=== PATIENT | female | born 1960 | race African-American/Black ===

== ENCOUNTER 2017-01-28 22:41 | Emergency (ER) | payer MEDICAID ==
[~2017-01-28] VITALS: Ht 162.6 cm; Wt 66.0 kg
[~2017-01-28 22:41] MED LIST: ALBUTEROL; MORP30TA54 PO; NAPROXEN
[2017-01-29 01:21] VITALS: BP 156/95
== END 2017-01-29 02:34 | disposition home or self-care (01) ==
LOC: ER 22:41
DX: R09.89 Other specified symptoms and signs involving the circulatory and respiratory systems (principal); R47.02 Dysphasia
CPT/HCPCS: 70490; 71010; 99284

== ENCOUNTER 2017-02-25 23:19 | Emergency (ER) | payer MEDICAID ==
[~2017-02-25] VITALS: Ht 165.1 cm; Wt 64.0 kg
[~2017-02-25 23:19] MED LIST changes: +IOHEXOL-300 100 ML BOTTLE ONE; +SODIUM CHLORIDE 0.9% 10ML VIAL ONE
[2017-02-26] MEDS ORDERED: SODIUM CHLORIDE 0.9% 1,000 ML IV ONE (02:30)
[2017-02-26 03:00] LABS: BASOPHILS % 0.3 % (0.0-2.0); EOSINOPHILS % 0.8 % (0.0-5.0); HEMATOCRIT. 37.5 % (36.0-48.0); HEMOGLOBIN. 12.3 g/dL (12.0-16.0); LYMPHOCYTES % 8.1 % (20.0-50.0); MEAN CORPUSCULAR HEMOGLOBIN 26.8 pg (28.0-32.0); MEAN CORPUSCULAR HGB CONC 32.6 g/dL (31.0-37.0); MEAN PLATELET VOLUME 7.5 fl (7.4-10.4); MONOCYTES % 8.4 % (2.0-8.0); NEUTROPHILS % 82.4 % (40.0-76.0); PLATELET 361 x1000/uL (130-400); RED BLOOD CELL COUNT 4.58 mill/uL (4.2-5.4); RED CELL DISTRIBUTION WIDTH 15.5 % (11.6-14.6); WHITE BLOOD COUNT 14.7 x1000/uL (4.5-11.0)
[2017-02-26 03:17] LABS: ANION GAP 12; CALCIUM 8.6 mg/dL (8.5-10.1); CARBON DIOXIDE 30 mEq/L (21-32); CHLORIDE 98 mEq/L (98-107); UREA NITROGEN BLOOD 13 mg/dL (7-21); eGFR > 60 mL/min (>60)
[2017-02-26 03:18] LABS: ALANINE AMINOTRANSFERASE 31 IU/L (13-61); ALBUMIN 2.5 g/dL (3.4-5.0); INDEX HEMOLYSI 1 (1-3); INDEX ICTERIC 1 (1-4); INDEX LIPEMIC 1 (1-3)
[2017-02-26] MEDS ORDERED: LIDOCAINE HCL/EPINEPHRINE 1%-EPI 1:100,000 50 ML VIAL INFIL ONE (05:15)
[2017-02-26] MEDS ORDERED: SODIUM CHLORIDE 0.9% IRRIG SOLUTION 1000ML IR ONE (05:15)
[2017-02-26] MEDS ORDERED: ONDANSETRON HCL 4MG/2ML VIAL IV ONE (05:15)
[2017-02-26] MEDS ORDERED: MORPHINE SULFATE 4 MG/ML CPJ (NOT FOR IM USE) IV ONE (05:15)
[2017-02-26] MEDS ORDERED: LIDOCAINE HCL 1%/EPI 1:200,000 30 ML VIAL MC NR (05:30)
[2017-02-26 06:20] VITALS: BP 116/82
[2017-02-26] MEDS ORDERED: CEFAZOLIN 1000MG PREMIX 50 ML IV ONE (06:30)
[2017-02-26] MEDS ORDERED: VANCOMYCIN 1 G PREMIX 200 ML IV SCH (06:30)
[2017-02-26] MEDS ORDERED: DIPHENHYDRAMINE 50MG/ML VIAL IV ONE (06:30)
[2017-02-27] MEDS ORDERED: AMOX500T2 PO (09:21)
== END 2017-02-26 09:32 | disposition home or self-care (01) ==
LOC: ER 23:20
DX: L02.415 Cutaneous abscess of right lower limb (principal); K57.30 Diverticulosis of large intestine without perforation or abscess without bleeding; J44.9 Chronic obstructive pulmonary disease, unspecified; B19.20 Unspecified viral hepatitis C without hepatic coma; K59.00 Constipation, unspecified; K76.89 Other specified diseases of liver; M19.90 Unspecified osteoarthritis, unspecified site; K43.9 Ventral hernia without obstruction or gangrene; K40.90 Unilateral inguinal hernia, without obstruction or gangrene, not specified as recurrent; J98.4 Other disorders of lung; F17.210 Nicotine dependence, cigarettes, uncomplicated; Z88.0 Allergy status to penicillin; Z88.5 Allergy status to narcotic agent; Z98.890 Other specified postprocedural states
CPT/HCPCS: 10060; 36415; 74177; 80053; 83605; 85025; 85651; 86140; 96361; 96365; 96375; 99285; A4216; A4217; J0690; J1200; J2270; J2405; J3370; J7030; Q9967; Z7610; J3490

== ENCOUNTER 2017-02-27 09:11 | Emergency (ER) | payer MEDICAID ==
[~2017-02-27] VITALS: Ht 162.6 cm; Wt 63.5 kg
[~2017-02-27 09:11] MED LIST changes: -IOHEXOL-300 100 ML BOTTLE ONE; -SODIUM CHLORIDE 0.9% 10ML VIAL ONE
[2017-02-27 09:21] VITALS: BP 100/70
[2017-02-27] MEDS ORDERED: AMOX500T2 PO (09:21)
== END 2017-02-27 10:44 | disposition home or self-care (01) ==
LOC: ER 09:51
DX: Z48.01 Encounter for change or removal of surgical wound dressing (principal); R53.1 Weakness; J44.9 Chronic obstructive pulmonary disease, unspecified; M19.90 Unspecified osteoarthritis, unspecified site; F17.210 Nicotine dependence, cigarettes, uncomplicated; Z88.0 Allergy status to penicillin; Z88.5 Allergy status to narcotic agent; Z79.899 Other long term (current) drug therapy; Z86.19 Personal history of other infectious and parasitic diseases
CPT/HCPCS: 99281; X7700; Z7610

== ENCOUNTER 2019-05-11 22:09 | Emergency (ER) | payer MEDICAID ==
[~2019-05-11] VITALS: Ht 152.4 cm; Wt 64.0 kg
[~2019-05-11 22:09] MED LIST changes: +AMOX500T2 PO; -MORP30TA54 PO; -NAPROXEN
[2019-05-11 22:53] VITALS: BP 158/77
[2019-05-12] MEDS ORDERED: LIDOCAINE HCL/PF 1% 10 MG/ML 30ML VIAL INFIL ONE (00:15)
[2019-05-12] MEDS ORDERED: LIDOCAINE HCL 2%/EPINEPHRINE/PF 10 ML VIAL INFIL ONE (00:15)
[2019-05-12] MEDS ORDERED: LIDOCAINE HCL 1% 20ML VIAL (Pyxis) INJ INFIL NR (00:30)
[2019-05-12] MEDS ORDERED: CEPHALEXIN 250MG CAPSULE PO ONE (01:00)
[2019-05-12] MEDS ORDERED: KETOROLAC 60MG/2ML VIAL IM ONE (01:00)
== END 2019-05-12 01:35 | disposition home or self-care (01) ==
LOC: ER 22:09
DX: L02.415 Cutaneous abscess of right lower limb (principal); F17.210 Nicotine dependence, cigarettes, uncomplicated; Z71.6 Tobacco abuse counseling
CPT/HCPCS: 10060; 99283; 99406; A4217; J1885; J3490; Z7610

== ENCOUNTER 2019-09-01 18:45 | Emergency (ER) | payer MEDICAID ==
[~2019-09-01] VITALS: Ht 157.5 cm; Wt 78.0 kg
[2019-09-01] MEDS ORDERED: KETOROLAC 30MG/ML VIAL IV STA (22:42)
[2019-09-01] MEDS ORDERED: SODIUM CHLORIDE 0.9% 1,000 ML IV ONE (22:42)
[2019-09-01 23:06] LABS: BASOPHILS % 0.7 % (0.0-2.0); EOSINOPHILS % 3.5 % (0.0-5.0); HEMATOCRIT. 42.7 % (36.0-48.0); HEMOGLOBIN. 14.3 g/dL (12.0-16.0); LYMPHOCYTES % 26.1 % (20.0-50.0); MEAN CORPUSCULAR HEMOGLOBIN 29.2 pg (28.0-32.0); MEAN CORPUSCULAR VOLUME 86.8 fL (81.0-99.0); MEAN PLATELET VOLUME 8.1 fl (7.4-10.4); MONOCYTES % 8.7 % (2.0-8.0); PLATELET 274 x1000/uL (130-400); RED BLOOD CELL COUNT 4.92 mill/uL (4.2-5.4)
[2019-09-01 23:17] LABS: CHLORIDE 104 mEq/L (98-107)
[2019-09-02 01:41] VITALS: BP 182/92
[2019-09-02] MEDS ORDERED: IOHEXOL-300 100 ML BOTTLE ONE (02:50)
== END 2019-09-02 01:44 | disposition home or self-care (01) ==
LOC: ER 18:45
DX: R51 Headache (principal); M25.552 Pain in left hip; F11.20 Opioid dependence, uncomplicated; F17.210 Nicotine dependence, cigarettes, uncomplicated; Z71.6 Tobacco abuse counseling
CPT/HCPCS: 36415; 72193; 80053; 85025; 96374; 99284; 99406; J1885; J7030; Q9967; Z7610

== ENCOUNTER 2019-10-30 16:52 | Emergency (ER) | payer MEDICAID ==
[~2019-10-30] VITALS: Ht 162.6 cm; Wt 63.0 kg
[2019-10-30] MEDS ORDERED: IBUPROFEN 400MG TABLET PO ONE (19:00)
[2019-10-30 19:45] VITALS: BP 124/74
== END 2019-10-30 20:15 | disposition home or self-care (01) ==
LOC: ER 16:52
DX: S76.012A Strain of muscle, fascia and tendon of left hip, initial encounter (principal); M54.2 Cervicalgia; K08.89 Other specified disorders of teeth and supporting structures; F17.210 Nicotine dependence, cigarettes, uncomplicated; Z71.6 Tobacco abuse counseling; Y93.89 Activity, other specified; V78.4XXA Person boarding or alighting from bus injured in noncollision transport accident, initial encounter; Y92.410 Unspecified street and highway as the place of occurrence of the external cause; Z88.0 Allergy status to penicillin; Z88.5 Allergy status to narcotic agent
CPT/HCPCS: 73502; 99283; 99406

== ENCOUNTER 2020-01-20 22:16 | Emergency (ER) | payer MEDICAID ==
[~2020-01-20] VITALS: Ht 162.6 cm; Wt 63.0 kg
[2020-01-20 23:06] VITALS: BP 166/109
[2020-01-21] MEDS ORDERED: vitamin d (19:10)
[2020-01-21] MEDS ORDERED: naproxen (19:10)
== END 2020-01-20 23:07 | disposition home or self-care (01) ==
LOC: ER 22:16
DX: I10 Essential (primary) hypertension (principal); J44.9 Chronic obstructive pulmonary disease, unspecified; Z88.0 Allergy status to penicillin; Z79.899 Other long term (current) drug therapy; Z88.6 Allergy status to analgesic agent; Z87.891 Personal history of nicotine dependence
CPT/HCPCS: 99281

== ENCOUNTER 2020-01-21 18:33 | Emergency (ER) | payer MEDICAID ==
[~2020-01-21] VITALS: Ht 162.6 cm; Wt 60.0 kg
[2020-01-21] MEDS ORDERED: naproxen (19:10)
[2020-01-21] MEDS ORDERED: vitamin d (19:10)
[2020-01-21 20:01] VITALS: BP 130/89
== END 2020-01-21 21:25 | disposition left against medical advice (07) ==
LOC: ER 18:33
DX: I10 Essential (primary) hypertension (principal); Z53.21 Procedure and treatment not carried out due to patient leaving prior to being seen by health care provider

== ENCOUNTER 2020-07-08 16:31 | Inpatient (IN) | payer MEDICAID ==
[~2020-07-08] VITALS: Ht 162.6 cm; Wt 51.3 kg
[~2020-07-08 16:31] MED LIST changes: -AMOX500T2 PO; +naproxen; +vitamin d
[2020-07-08] MEDS ORDERED: KETOROLAC 30MG/ML VIAL IV STA (19:07)
[2020-07-08] MEDS ORDERED: SODIUM CHLORIDE 0.9% 1,000 ML IV ONE (19:07)
[2020-07-08] MEDS ORDERED: VANCOMYCIN 1 G PREMIX 200 ML IV SCH (19:15)
[2020-07-08] MEDS ORDERED: CLINDAMYCIN 600 MG in DEXTROSE 5% WATER 50 ML IV ONE (19:15)
[2020-07-08] MEDS ORDERED: ALBUTEROL 6.7GM HFA INHALER ORI ONE (20:00)
[2020-07-08] MEDS ORDERED: CLINDAMYCIN 600MG PREMIX 50 ML IV SCH (20:15)
[2020-07-08] MEDS ORDERED: MORPHINE SULFATE 2 MG/ML CPJ (NOT FOR IM USE) IV ONE (20:15)
[2020-07-08 20:29] LABS: BASOPHILS % 0.5 % (0.0-2.0); EOSINOPHILS % 1.9 % (0.0-5.0); HEMATOCRIT. 35.8 % (36.0-48.0); HEMOGLOBIN. 12.1 g/dL (12.0-16.0); LYMPHOCYTES % 11.6 % (20.0-50.0); MEAN CORPUSCULAR HEMOGLOBIN 28.2 pg (28.0-32.0); MEAN CORPUSCULAR VOLUME 83.4 fL (81.0-99.0); MEAN PLATELET VOLUME 7.9 fl (7.4-10.4); MONOCYTES % 7.6 % (2.0-8.0); NEUTROPHILS % 78.4 % (40.0-76.0); PLATELET 358 x1000/uL (130-400); RED CELL DISTRIBUTION WIDTH 16.4 % (11.6-14.6)
[2020-07-08 20:32] LABS: CHLORIDE 101 mEq/L (98-107)
[2020-07-08 20:37] LABS: ETHANOL BLOOD < 10 mg/dL
[2020-07-08 20:40] LABS: CREATINE KINASE 185 IU/L (26-192)
[2020-07-08 20:45] LABS: INR 1.1
[2020-07-08] MEDS ORDERED: IOHEXOL-300 100 ML BOTTLE ONE (21:10)
[2020-07-08] MEDS ORDERED: ALBUTEROL (0.083%) 2.5MG/3ML NEB HHN SCH (23:45)
[2020-07-09 01:00] VITALS: BP 139/85
[2020-07-09] MEDS ORDERED: MORPHINE SULFATE 2 MG/ML CPJ (NOT FOR IM USE) IV PRN ×2 (02:45→08:45)
[2020-07-09] MEDS ORDERED: IPRATROPIUM/ALBUTEROL 0.5-3(2.5)MG/3ML NEB HHN PRN (02:45)
[2020-07-09] MEDS: PIPERACILLIN/TAZOBACTAM 3.375 G in DEXT 5% WATER 100 ML IV SCH ×3 (04:39→20:30)
[2020-07-09 06:39] LABS: BASOPHILS % 0.3 % (0.0-2.0); EOSINOPHILS % 1.9 % (0.0-5.0); HEMATOCRIT. 36.4 % (36.0-48.0); HEMOGLOBIN. 12.1 g/dL (12.0-16.0); LYMPHOCYTES % 9.2 % (20.0-50.0); MEAN CORPUSCULAR HEMOGLOBIN 27.8 pg (28.0-32.0); MEAN CORPUSCULAR VOLUME 83.8 fL (81.0-99.0); MEAN PLATELET VOLUME 8.2 fl (7.4-10.4); MONOCYTES % 10.6 % (2.0-8.0); PLATELET 350 x1000/uL (130-400); RED BLOOD CELL COUNT 4.35 mill/uL (4.2-5.4)
[2020-07-09 06:48] LABS: CHLORIDE 105 mEq/L (98-107)
[2020-07-09 07:45] VITALS: BP 109/86
[2020-07-09] MEDS ORDERED: HYDROMORPHONE HCL/PF 2MG/ML (OR) ONE (08:21)
[2020-07-09] MEDS ORDERED: DEXAMETHASONE 4MG/ML 1ML VIAL ONE (08:21)
[2020-07-09] MEDS ORDERED: BUPIVACAINE HCL/PF 0.5% (5MG/ML) 10ML ONE (08:28)
[2020-07-09] MEDS ORDERED: LABETALOL 5MG/ML SYR 20 MG/4 ML SYRINGE IV PRN (08:45)
[2020-07-09] MEDS ORDERED: ONDANSETRON HCL 4MG/2ML INJ IV PRN ×2 (08:45)
[2020-07-09] MEDS ORDERED: HYDROCODONE/ACETAMINOPHEN 5/325MG TABLET PO PRN ×2 (08:45)
[2020-07-09] MEDS ORDERED: MEPERIDINE HCL/PF 25MG/ML CPJ IV PRN (08:45)
[2020-07-09] MEDS ORDERED: ENOXAPARIN 40MG/0.4ML SYR SUBCUT SCH (09:00)
[2020-07-09] MEDS ORDERED: PIPERACILLIN/TAZOBACTAM 3.375 G/VIAL IV SCH (09:00)
[2020-07-09] MEDS: HYDROMORPHONE HCL/PF 2MG/ML CPJ IV PRN ×4 (09:10→09:57)
[2020-07-09] MEDS: DOCUSATE SODIUM 250MG CAPSULE PO SCH ×2 (09:15→10:34)
[2020-07-09 09:39] LABS: CLARITY URINE CLEAR (CLEAR); COLOR URINE YELLOW (YELLOW); KETONES URINE NEGATIVE (NEGATIVE); LEUKOCYTE ESTERASE URINE NEGATIVE (NEGATIVE); NITRITE URINE NEGATIVE (NEGATIVE); OCCULT BLOOD URINE NEGATIVE (NEGATIVE); PROTEIN URINE TRACE (NEGATIVE); SPECIFIC GRAVITY URINE 1.016 (1.005-1.030)
[2020-07-09 10:04] LABS: *BENZODIAZEPINES SCREEN URINE NEGATIVE (NEGATIVE); *COCAINE SCREEN URINE NEGATIVE (NEGATIVE); METHADONE URINE SCREEN NEGATIVE (NEGATIVE)
[2020-07-09 10:05] LABS: *AMPHETAMINES SCREEN URINE NEGATIVE (NEGATIVE); *BARBITURATES SCREEN URINE NEGATIVE (NEGATIVE); CANNABINOID URINE SCREEN NEGATIVE (NEGATIVE); OPIATES URINE SCREEN PRESUMTIVE POSITIVE (NEGATIVE); PHENCYCLIDINE URINE SCREEN NEGATIVE (NEGATIVE)
[2020-07-09] MEDS: VANCOMYCIN 1 G PREMIX 200 ML IV SCH ×2 (10:34→21:49)
[2020-07-09] MEDS: DEXT 5%/0.45% NACL KCL 20MEQ/L 1,000 ML IV SCH ×3 (10:34→20:30)
[2020-07-09] MEDS: MORPHINE SULFATE 4 MG/ML CPJ (NOT FOR IM USE) IV PRN ×4 (10:42→21:50)
[2020-07-09 12:00] VITALS: BP 111/72
[2020-07-09] MEDS ORDERED: LACTULOSE 20G/30ML UDC PO NR (12:15)
[2020-07-09] MEDS ORDERED: NICOTINE 14MG PATCH TD SCH (13:00)
[2020-07-09 16:00] VITALS: BP 134/74
[2020-07-09] MEDS ORDERED: ZOLPIDEM TARTRATE 5MG TABLET PO PRN (17:30)
[2020-07-09 20:00] VITALS: BP 160/89
[2020-07-10] MEDS: PIPERACILLIN/TAZOBACTAM 3.375 G in DEXT 5% WATER 100 ML IV SCH (03:06)
[2020-07-10] MEDS: MORPHINE SULFATE 4 MG/ML CPJ (NOT FOR IM USE) IV PRN ×2 (03:07→06:23)
[2020-07-10] MEDS: DEXT 5%/0.45% NACL KCL 20MEQ/L 1,000 ML IV SCH (06:00)
[2020-07-10 08:58] VITALS: BP 135/74
== END 2020-07-10 09:15 | disposition home or self-care (01) | DRG 364 ==
LOC: ER 16:31 → 5WST 21:04 → EDBEDREQ 21:07 → EDBEDREQTM 21:07 → ENRESERV 23:40
PROVIDERS: ADMIT Internal Medicine; ATTEND Internal Medicine
PROC: 0J9L0ZZ Drainage of Right Upper Leg Subcutaneous Tissue and Fascia, Open Approach (ICD-10-PCS; principal; 2020-07-09)
DX: L02.415 Cutaneous abscess of right lower limb (principal); L03.115 Cellulitis of right lower limb; K56.41 Fecal impaction; J44.9 Chronic obstructive pulmonary disease, unspecified; F11.90 Opioid use, unspecified, uncomplicated; E87.1 Hypo-osmolality and hyponatremia; E43 Unspecified severe protein-calorie malnutrition; M19.90 Unspecified osteoarthritis, unspecified site; K75.9 Inflammatory liver disease, unspecified; F17.210 Nicotine dependence, cigarettes, uncomplicated; Z88.5 Allergy status to narcotic agent; Z88.0 Allergy status to penicillin; Z68.1 Body mass index [BMI] 19.9 or less, adult; Z71.6 Tobacco abuse counseling; Z71.51 Drug abuse counseling and surveillance of drug abuser
CPT/HCPCS: 36415; 71045; 74177; 76881; 80048; 80053; 80305; 80320; 81003; 82550; 83605; 83880; 84145; 85025; 85651; 86140; 87070; 87075; 87077; 99285; J1100; J1170; J1885; J2175; J2270; J2543; J3370; J3490; J7030; J7060; Q9967; G0480

== ENCOUNTER 2020-12-30 18:43 | Emergency (ER) | payer MEDICAID ==
[~2020-12-30] VITALS: Ht 162.6 cm; Wt 62.6 kg
[2020-12-30] MEDS ORDERED: ONDANSETRON HCL 4MG/2ML INJ IV ONE (19:00)
[2020-12-30] MEDS ORDERED: MORPHINE SULFATE 2 MG/ML CPJ (NOT FOR IM USE) IV ONE (19:00)
[2020-12-30 20:28] LABS: BASOPHILS % 0.5 % (0.0-2.0); EOSINOPHILS % 1.3 % (0.0-5.0); HEMATOCRIT. 41.5 % (36.0-48.0); HEMOGLOBIN. 13.5 g/dL (12.0-16.0); LYMPHOCYTES % 26.5 % (20.0-50.0); MEAN CORPUSCULAR HEMOGLOBIN 26.7 pg (28.0-32.0); MEAN CORPUSCULAR VOLUME 82.1 fL (81.0-99.0); MEAN PLATELET VOLUME 8.6 fl (7.4-10.4); MONOCYTES % 7.7 % (2.0-8.0); PLATELET 284 x1000/uL (130-400); RED BLOOD CELL COUNT 5.05 mill/uL (4.2-5.4); RED CELL DISTRIBUTION WIDTH 17.4 % (11.6-14.6)
[2020-12-30 20:34] LABS: CHLORIDE 103 mEq/L (98-107)
[2020-12-30 20:50] LABS: CLARITY URINE CLEAR (CLEAR); COLOR URINE YELLOW (YELLOW); KETONES URINE NEGATIVE (NEGATIVE); LEUKOCYTE ESTERASE URINE TRACE (NEGATIVE); NITRITE URINE NEGATIVE (NEGATIVE); OCCULT BLOOD URINE NEGATIVE (NEGATIVE); PROTEIN URINE NEGATIVE (NEGATIVE); SPECIFIC GRAVITY URINE 1.009 (1.005-1.030); UROBILINOGEN URINE 0.2 E.U./dL (0.2-1.0)
[2020-12-30 20:50] LABS: CREATINE KINASE 342 IU/L (26-192)
[2020-12-30] MEDS ORDERED: IOHEXOL-350 100 ML BOTTLE ONE ×2 (22:22→22:23)
[2020-12-31] MEDS ORDERED: ACETAMINOPHEN 325MG TABLET PO ONE (01:30)
[2020-12-31 01:45] VITALS: BP 114/77
[2020-12-31] MEDS ORDERED: IOHEXOL 350 MG/ML 200ML INFUS..BTL IV ONE (03:32)
== END 2020-12-31 02:00 | disposition home or self-care (01) ==
LOC: ER 18:43
DX: R04.2 Hemoptysis (principal); J43.9 Emphysema, unspecified; R51.9 Headache, unspecified; J32.9 Chronic sinusitis, unspecified; Z98.890 Other specified postprocedural states; Z88.0 Allergy status to penicillin; Z88.5 Allergy status to narcotic agent
CPT/HCPCS: 36415; 70450; 71045; 71275; 80053; 81003; 82550; 83605; 83880; 84145; 84484; 85025; 85379; 87040; 87086; 93005; 96374; 99285; C1893; J2270; Q9967; Z7610

== ENCOUNTER 2022-02-27 19:31 | Emergency (ER) | payer MEDICAID ==
[~2022-02-27] VITALS: Ht 162.6 cm; Wt 55.3 kg
[~2022-02-27 19:31] MED LIST changes: +ALBU18HF2 IH; -ALBUTEROL; +FLUT1DIS3 INH; +METH-819 GT; +NICO-789 TP; +ZOLP5TAB2 PO; -naproxen; -vitamin d
[2022-02-28 02:52] VITALS: BP 115/68
[2022-02-28] MEDS ORDERED: LEVO750T46 MT (03:24)
[2022-02-28] MEDS ORDERED: LEVOFLOXACIN 250MG TABLET PO ONE (03:30)
== END 2022-02-28 03:55 | disposition home or self-care (01) ==
LOC: ER 19:31
DX: J18.9 Pneumonia, unspecified organism (principal); J44.9 Chronic obstructive pulmonary disease, unspecified; F17.210 Nicotine dependence, cigarettes, uncomplicated; Z71.6 Tobacco abuse counseling
CPT/HCPCS: 71045; 99283; 99406

== ENCOUNTER 2022-08-15 11:12 | Emergency (ER) | payer MEDICAID ==
[~2022-08-15] VITALS: Ht 167.6 cm; Wt 65.0 kg
[~2022-08-15 11:12] MED LIST changes: +LEVO750T68 MT
[2022-08-15] MEDS ORDERED: ACETAMINOPHEN 325MG TABLET PO STA (11:39)
[2022-08-15] MEDS ORDERED: KETOROLAC 30MG/ML VIAL IM STA (13:32)
[2022-08-15] MEDS ORDERED: TRAMADOL 50MG TABLET PO STA (13:32)
[2022-08-15 13:53] VITALS: BP 143/97
[2022-08-15] MEDS ORDERED: TRAM50TA3 PO (14:21)
[2022-08-15] MEDS ORDERED: NAPR-681 PO (14:21)
== END 2022-08-15 14:31 | disposition home or self-care (01) ==
LOC: ER 11:12
DX: S00.83XA Contusion of other part of head, initial encounter (principal); S70.01XA Contusion of right hip, initial encounter; M79.651 Pain in right thigh; M47.896 Other spondylosis, lumbar region; M41.9 Scoliosis, unspecified; J44.9 Chronic obstructive pulmonary disease, unspecified; W06.XXXA Fall from bed, initial encounter; Y93.89 Activity, other specified; Y92.032 Bedroom in apartment as the place of occurrence of the external cause; Z88.0 Allergy status to penicillin; Z88.5 Allergy status to narcotic agent; Z79.51 Long term (current) use of inhaled steroids; Z79.899 Other long term (current) drug therapy
CPT/HCPCS: 70450; 72100; 73502; 96372; 99284; J1885

== ENCOUNTER 2022-08-18 16:10 | Emergency (ER) | payer MEDICAID ==
[~2022-08-18] VITALS: Ht 160 cm; Wt 53.0 kg
[~2022-08-18 16:10] MED LIST changes: +NAPR-681 PO; +TRAM50TA3 PO
[2022-08-18 16:16] VITALS: BP 163/75
[2022-08-18] MEDS ORDERED: IBUPROFEN 400MG TABLET PO ONE (19:30)
[2022-08-18] MEDS ORDERED: GUAIFENESIN 600MG ER TABLET PO SCH (21:00)
== END 2022-08-18 21:35 | disposition left against medical advice (07) ==
LOC: ER 16:10
DX: R09.89 Other specified symptoms and signs involving the circulatory and respiratory systems (principal); R06.02 Shortness of breath; J44.9 Chronic obstructive pulmonary disease, unspecified; Z87.01 Personal history of pneumonia (recurrent); Z79.899 Other long term (current) drug therapy; Z88.0 Allergy status to penicillin
CPT/HCPCS: 71045; 99283